=== PATIENT | female | born 1990 | race Caucasian/White ===

== ENCOUNTER 2021-08-22 14:18 | Emergency (ER) | payer OTHER ==
[~2021-08-22] VITALS: Ht 162.6 cm; Wt 85.2 kg
[2021-08-22 14:19] VITALS: BP 126/73
[2021-08-22] MEDS ORDERED: NS 1,000 ML IV ONE (16:10)
[2021-08-22] MEDS ORDERED: KETOROLAC 30 MG/ML 1ML VIAL IV ONE (16:10)
--- NOTE | 2021-08-22 16:31 | REP ---
INDICATION: bilateral flank and right upper quadrant pain with nausea COMPARISON: None TECHNIQUE: Axial noncontrast images from the lung bases to the pubic symphysis with coronal and sagittal reformations. This CT examination was performed using the following dose reduction techniques: Automated exposure control, adjustment of mA and/or kv according to the patient's size, and use of iterative reconstruction technique. FINDINGS: Lung bases are clear. Visualized heart and pericardium normal. Liver, spleen, pancreas, gallbladder, bilateral adrenal glands and kidneys are normal. The enteric system is unremarkable and without obstruction or acute inflammatory process. Normal terminal ileum and appendix identified in the right lower quadrant. Pelvis demonstrates normal bladder and age-appropriate uterus with bilateral dermoid cysts measuring 3.5 cm on the right and 3.0 cm on the left. No ascites. No free air. No adenopathy. No focal inflammatory stranding. Abdominal aorta without aneurysm. Musculoskeletal structures are intact and without acute osseous abnormality. IMPRESSION: No acute abdominopelvic pathology appreciated. Bilateral ovarian dermoid cysts. <Electronically signed by Odell Garsia > 08/22/21 [id number]
[2021-08-22 16:51] LABS: BASO % 0.1 % (0.0-1.0); EOS # 0.1 10^3/uL (0.0-0.5); HEMATOCRIT 43.9 % (36.0-47.0); HEMOGLOBIN 14.6 g/dl (12.0-15.5); LYMPH # 1.5 10^3/uL (1.5-5.0); LYMPH % 15.2 % (24.0-44.0); MEAN CORPUSCULAR HEMOGLOBIN 29.9 pg (27.0-33.0); MEAN CORPUSCULAR HGB CONC 33.3 g/dl (32.0-36.5); MEAN CORPUSCULAR VOLUME 89.8 fl (80.0-96.0); MONO # 0.7 10^3/uL (0.0-0.8); MONO % 6.9 % (2.0-8.0); NEUTROPHILS # 7.3 10^3/uL (1.5-8.5); NEUTROPHILS % 76.4 % (36.0-66.0); PLATELET COUNT, AUTOMATED 231 10^3/uL (150-450); RED BLOOD COUNT 4.89 10^6/uL (4.00-5.40); WHITE BLOOD COUNT 9.6 10^3/uL (4.0-10.0)
[2021-08-22 17:10] LABS: ALT/SGPT 22 U/L (12-78); BILIRUBIN,TOTAL 0.9 MG/DL (0.2-1.0); BLOOD UREA NITROGEN 10 MG/DL (7-18); CALCIUM LEVEL 9.3 MG/DL (8.5-10.1); CARBON DIOXIDE LEVEL 27 MEQ/L (21-32); CHLORIDE LEVEL 105 MEQ/L (98-107); CREATININE FOR GFR 0.56 MG/DL (0.55-1.30); GLOMERULAR FILTRATION RATE > 60.0 (>60); GLUCOSE, FASTING 86 MG/DL (70-100); LIPASE 68 U/L (73-393); MAGNESIUM LEVEL 2.2 MG/DL (1.8-2.4); POTASSIUM SERUM 4.1 MEQ/L (3.5-5.1); SODIUM LEVEL 138 MEQ/L (136-145); TOTAL PROTEIN 7.3 GM/DL (6.4-8.2)
--- NOTE | 2021-08-22 18:15 | REP ---
INDICATION: plase evaluate bilateral ovarian cyst (dermoid) COMPARISON: None. TECHNIQUE: Transabdominal pelvic ultrasound followed by transvaginal examination for better evaluation of the endometrium and adnexa with color Doppler evaluation of the ovaries. FINDINGS: Bladder is unremarkable and measures 6.7 x 3.6 x 4.7 cm. Normal anteverted uterus measures 10.6 x 5.4 x 6.9 cm. The endometrial complex measures 13 mm thickness. Incidental subcentimeter nabothian cysts up to 5 mm. Bilateral ovaries are normal in vascularity without evidence for torsion. Right ovary measures 5.1 x 2.9 x 3.3 cm and includes 3.1 x 3.2 x 2.7 cm dermoid; R I = 0.65. Left ovary measures 3.9 x 2.4 x 2.4 cm and includes 2.6 x 2.2 x 2.7 cm dermoid; R I = 0.67. No pelvic fluid or adnexal mass lesion IMPRESSION: 1. Essentially normal uterus. 2. Bilateral ovarian dermoid cysts. <Electronically signed by Odell Garsia > 08/22/21 [id number]
[2021-08-22] MEDS ORDERED: ANEXSIA, NORCO 7.5MG/325MG TABLET(HYDROCODONE/APAP) PO ONE (18:25)
[2021-08-22] MEDS ORDERED: HYDR-3713 PO (18:34)
[2021-08-22] MEDS ORDERED: IBUP-1022 PO (18:34)
== END 2021-08-22 18:55 | disposition home or self-care (01) ==
LOC: M ED 14:18
DX: D27.9 Benign neoplasm of unspecified ovary (principal); R10.2 Pelvic and perineal pain; R11.2 Nausea with vomiting, unspecified; F32.9 Major depressive disorder, single episode, unspecified; F12.10 Cannabis abuse, uncomplicated
CPT/HCPCS: 74176; 76830; 76856; 80053; 81001; 83690; 83735; 85025; 93976; 96374; 99282; J1885